=== PATIENT | female | born 1950 | race Caucasian/White ===

== ENCOUNTER 2022-01-01 10:20 | Outpatient (CLI) | payer MEDICARE, BC | END 2022-01-01 10:21 | disposition home or self-care (01) | LOC: CSHMAMMO 10:20 | PROVIDERS: ATTEND Internal Medicine | DX: Z13.820 Encounter for screening for osteoporosis (principal); E28.39 Other primary ovarian failure; M85.89 Other specified disorders of bone density and structure, multiple sites; Z78.0 Asymptomatic menopausal state | CPT/HCPCS: 77080 ==

== ENCOUNTER 2022-08-17 09:00 | Outpatient (CLI) | payer MEDICARE, BC | END 2022-08-17 09:01 | disposition home or self-care (01) | LOC: CSHMAMMO 09:00 | PROVIDERS: ATTEND Internal Medicine | DX: Z12.31 Encounter for screening mammogram for malignant neoplasm of breast (principal) | CPT/HCPCS: 77063; 77067 ==

== ENCOUNTER 2023-09-02 10:56 | Outpatient (CLI) | payer MEDICARE, BC | END 2023-09-02 10:57 | disposition home or self-care (01) | LOC: CSHMAMMO 10:56 | PROVIDERS: ATTEND Internal Medicine | DX: Z12.31 Encounter for screening mammogram for malignant neoplasm of breast (principal) | CPT/HCPCS: 77063; 77067 ==